=== PATIENT | female | born 1990 | race Hispanic/Latino ===

== ENCOUNTER → 2023-03-24 12:11 | Outpatient (CLI) | payer OTHER, SELFPAY ==
--- NOTE | 2023-03-24 | DI.US.S_ITS ---
PROCEDURE: US OB >= 14 WEEKS FETUS INDICATIONS: 20WK ANATOMY SCAN OUTSIDE/PRIOR DATING DATA: Last menstrual period (LMP): 11/04/2022 LMP-based estimated date of delivery (LORIE): 08/11/2023 First dating scan (date and location): Not available Estimated date of delivery (LORIE) from first dating scan: Not available The calculations are made using the working LORIE of 08/11/2023. TECHNIQUE: Real-time scanning was performed of the fetus, with image documentation and biometric measurements. Endovaginal scannin case it COMPARISON: None. FINDINGS: General: A single living intrauterine gestation is present. Presentation: Oblique with head towards right upper quadrant. Placenta: Placental position is right anterior, without previa. Amniotic fluid index: 14.3 cm, normal range is 5-24 cm. Single deepest vertical pocket is 4.8 cm. heart rate: 141 beats per minute. Maternal cervical canal: 4.0 cm long. Normal lower limit is 2.5 cm. biometrics: Biparietal diameter: 4.9 cm, 20 weeks, 5 days. Head circumference: 18.0 cm, 20 weeks, 3 days. Abdominal circumference: 15.9 cm, 21 weeks, 0 day. Femur length: 3.4 cm, 20 weeks, 4 days. Clinically estimated gestational age: 20 weeks, 0 day Composite gestational age from present scan: 20 weeks, 5 days Estimated weight and percentile: 378 g, 87% Anatomic survey: Neuro: Ventricles are non-dilated at less than 10 mm. Cisterna magna is normal at 3-11 mm. Cerebellum is normal in size and morphology. Nuchal skin fold: Normal at less than 6 mm between 14-21 weeks gestational age. Face: Nose and lips, facial profile are normal. Spine: No evidence for spina bifida. Heart: 4-chambered heart is present, with normal ventricular outflow tracts. Diaphragm: Diaphragm is intact. Stomach: Left-sided stomach is present. Kidneys: No hydronephrosis. Normal is less than 5 mm in 2nd trimester, less than 7 mm in 3rd trimester. Cord: 3-vessel cord has orthotopic insertion. Bladder: Normal in size. Extremities: All 4 extremities identified. IMPRESSION: 1. Single live intrauterine gestation with fetus in oblique presentation. heart rate is 141 beats per minute. Normal amount of amniotic fluid. Normal growth with estimated weight at 87%. 2. Normal anatomic survey. We strive to produce accurate, complete, and clear reports of imaging services. To assist us in improving patient care, this report was composed using standard report templates and voice recognition software. Therefore, it may contain abnormal punctuation, insertions and/or omissions. Occasional wrong-word or sound-alike substitutions may occur. Though we review the report and make efforts to correct it, we do recommend that the report be read carefully in proper context to recognize any text inaccuracies. Dictated by: Grayson Ham M.D. on 03/24/2023 at 15:23 Approved by: Grayson Ham M.D. on 03/24/2023 at 15:25
== END ==
PROVIDERS: Referring Provider Advanced Practice Midwife; Visit Provider Advanced Practice Midwife
DX: Z34.92 Encounter for supervision of normal pregnancy, unspecified, second trimester (principal)
CPT/HCPCS: 76811

== ENCOUNTER 2023-05-05 08:32 | Observation (INO) | payer OTHER, SELFPAY ==
--- NOTE | 2023-05-05 09:52 | PM.OBTRLD ---
Visit Information Visit Information Date of evaluation: 05/05/23 Primary OB Provider: Heydi Gee On-call OB Provider: Heydi Gee Reason for Evaluation: Yes pre-term labor Comments/Additional reasons for admission: Chantal is a 33yo at 26 weeks 0 days by sure LMP, concordant with 10 week US, here for contractions. Chantal woke up at 3am with mild to moderate contractions q2-3 minutes, lasting 40-60 seconds. Some contractions just feel like tightening, others are uncomfortable with a lot of pelvic pressure. She denies LOF or VB and endorses regular movement. She denies dysuria, new urinary urgency or changes in vaginal discharge. She endorses vaginal soreness/tenderness after a lot sexual intercourse over the last three days, after abstaining for three weeks. After waking up with contractions, she tried walking in the house, hydration and voiding, with no change in intensity or frequency. Upon admission she has to stop talking due to the pressure of some contractions. Uterine activity is difficult to palpate and visualize on the toco; patient recording of uterine activity shows contractions q1-4 minutes. Chantal has received regular care with [facility], complicated by genital HSV and mild asthma. She is accompanied by her and children. Vital Signs Vital Signs: BP: 103/58 mmHg HR: 101 bpm T: 36.2 C Sp02: 97% PFSH Medical History Genital herpes Asthma Family History Grandfather Hypertension Lung disease Grandmother Hypertension Uncle Diabetes mellitus Depression Mother Depression Social History marital status: number of children: 3 household members: spouse and children Smoking Status: Never smoker alcohol intake: never substance use type: does not use Review of Systems Review of Systems ROS: Yes All systems reviewed with the patient and are negative except as otherwise documented Exam Const General: healthy appearing HENMT Head: normal to inspection and normocephalic Eyes General: appearance normal, both eyes and all related structures Resp Effort & Inspection: normal respiratory effort GI Inspection: normal to inspection (gravid) Skin General: no rashes or lesions noted Neuro General: patient alert and patient oriented x3 Objective Labs 05/05/23 10:10 Labs: GBS PCR positive BV positive Yeast equivocal GC/CT negative CBC normal WBC but anemia Evaluation Evaluation Baseline heart rate: 135 Variability: Moderate (11-25) monitor accelerations: Present (AGA) Monitor Decelerations: Absent Contraction Frequency (minutes): 3 (1-4) Uterine Contraction Intensity: Mild Category of Tracing: Appropriate for gestational age Status: Category l Cervical dilation (cm): 0 Cervical effacement (%): 0 station: -4 Diagnosis, Plan/Disposition Plan/Disposition Plan: A: 33yo at 26 weeks 0 days contractions GBS unknown Rh positive FHR Cat 1 Nor in labor P: Repeat SVE in 2 hrs Continuous monitoring of FHR and uterine activity GCCT, Wet prep, GBS PCR,CBC collected and sent to lab FFN not collected as patient had sex in last 24hrs Recommend nifedipine for tocolysis, Chantal declines IV hydration, 1L LR Bolus
[2023-05-05 10:03] LABS: Bilirubin Urine UA NEGATIVE (NEGATIVE); Color Urine UA YELLOW; Glucose Urine UA NEGATIVE (Negative); Ketones Urine UA 2+ (NEGATIVE); Leukocyte Esterase Urine UA NEGATIVE (NEGATIVE); Nitrite Urine UA NEGATIVE (Negative); Occult Blood Urine UA NEGATIVE (Negative); Protein Urine UA NEGATIVE (Negative); Specific Gravity Urine UA 1.015 (1.000-1.035)
[2023-05-05 10:04] LABS: Appearance Urine UA Slightly Cloudy
[2023-05-05 10:29] LABS: Add Manual Diff / Slide Review NO; Basophils Absolute Auto 100 /uL (0-100); Basophils Percent Auto 0.6 % (0-2); Eosinophils Absolute Auto 100 /uL (0-450); Eosinophils Percent Auto 0.8 % (2-4); Hematocrit 30.5 % (36-46); Hemoglobin 10.2 g/dL (12.0-16.0); Lymphocytes Absolute Auto 1500 /uL (1100-4500); Mean Corpuscular HGB Conc 33.6 % (30-36); Mean Corpuscular Hemoglobin 29.8 PG (26-34); Mean Corpuscular Volume 88.7 fL (80-100); Monocytes Absolute Auto 600 /uL (0-900); Monocytes Percent Auto 6.7 % (3-14); Neutrophils Absolute Auto 6600 /uL (1500-7000); Neutrophils Percent Auto 74.9 % (50-75); Platelet Count 291 X10^3/uL (150-400); Red Blood Cell Count 3.44 X10^6/uL (4.0-5.2); White Blood Cell Count 8.8 X10^3/uL (4.5-11.0)
[2023-05-05 10:42] LABS: Strep Grp B PCR POS for Grp B Strep
[2023-05-05 12:01] LABS: Urine Chlamydia NOT DETECTED; Urine N gonorrhoeae NOT DETECTED
== END 2023-05-05 13:06 | disposition home or self-care (01) ==
PROVIDERS: Admitting Provider Advanced Practice Midwife; Referring Provider Advanced Practice Midwife; Visit Provider Advanced Practice Midwife
DX: O47.02 False labor before 37 completed weeks of gestation, second trimester (principal); Z3A.26 26 weeks gestation of pregnancy
CPT/HCPCS: 59025; 59050; 81003; 85025; 87086; 87186; 87210; 87491; 87591; 87653; 96360; G0378; G0379

== ENCOUNTER → 2023-05-18 19:59 | Outpatient (ROUT) | payer OTHER, SELFPAY ==
[2023-05-18 20:03] LABS: Hematocrit 31.4 % (36-46); Hemoglobin 10.6 g/dL (12.0-16.0); Mean Corpuscular HGB Conc 33.7 % (30-36); Mean Corpuscular Hemoglobin 29.5 PG (26-34); Mean Corpuscular Volume 87.7 fL (80-100); Platelet Count 315 X10^3/uL (150-400); Red Blood Cell Count 3.58 X10^6/uL (4.0-5.2); Red Cell Distribution Width 13.2 % (11.6-14.8); White Blood Cell Count 8.7 X10^3/uL (4.5-11.0)
== END ==
PROVIDERS: Visit Provider Nurse Practitioner Obstetrics & Gynecology
DX: Z34.90 Encounter for supervision of normal pregnancy, unspecified, unspecified trimester (principal); Z13.1 Encounter for screening for diabetes mellitus; Z3A.26 26 weeks gestation of pregnancy
CPT/HCPCS: 85027